=== PATIENT | male | born 1965 | race Caucasian/White ===

== ENCOUNTER 2017-05-30 19:27 | Emergency (ER) | payer OTHER ==
[~2017-05-30] VITALS: Ht 182.9 cm; Wt 88.0 kg
[~2017-05-30 19:27] MED LIST: CEFD300C37 PO
[2017-05-30 19:36] VITALS: BP 146/90
[2017-05-30] MEDS ORDERED: ALBUTEROL/IPRATROPIUM 2.5MG/0.5MG, 3 ML NPPB ONE ×2 (20:00→20:30)
[2017-05-30 20:43] LABS: RAPID INFLUENZA A POSITIVE (Negative); RAPID INFLUENZA B Negative (Negative)
== END 2017-05-30 22:20 | disposition home or self-care (01) ==
LOC: ED 22:00
DX: J10.1 Influenza due to other identified influenza virus with other respiratory manifestations (principal); J20.8 Acute bronchitis due to other specified organisms
CPT/HCPCS: 71020; 87400; 94640; 99285; J7512; J7620